=== PATIENT | male | born 1970 | race African-American/Black ===

== ENCOUNTER 2016-07-15 11:15 | Emergency (ER) | payer BC | END 2016-07-15 12:30 | disposition home or self-care (01) | LOC: ER 11:15 | DX: J02.9 Acute pharyngitis, unspecified (principal); H10.9 Unspecified conjunctivitis; I10 Essential (primary) hypertension; Z88.0 Allergy status to penicillin; Z91.040 Latex allergy status | CPT/HCPCS: 87070; 87880; 99284; A9270-GY ==